=== PATIENT | female | born 1960 | race Caucasian/White ===

== ENCOUNTER 2018-12-03 09:17 | Outpatient (CLI) | payer OTHER, SELFPAY ==
[2018-12-03 09:37] LABS: Abs Immature Grans 0.01 k/cumm (0.0-0.09); Absolute Basophil Count 0.05 k/cumm (0.0-0.2); Absolute Eosinophil Count 0.39 k/cumm (0.0-0.7); Absolute Monocyte Count 0.28 k/cumm (0.11-0.7); Absolute Neutrophil Count 2.25 k/cumm (1.2-6.7); Basophils % 1.4; Eosinophils % 10.6; HCT 40.5 % (36.0-46.0); Immature Grans % 0.3; Mean Corp. HGB Concentration 32.1 g/dL (32.0-36.0); Mean Corpuscular Hemoglobin 29.5 pg (27.0-33.0); Mean Corpuscular Volume 91.8 fL (80-95); Mean Platelet Volume 10.3 fL (8.0-11.0); Monocytes % 7.6; Neutrophils % 61.1; Platelet Count 176 x1000/uL (130-400); RBC 4.41 m/cumm (4.00-5.20); RBC Distribution Width 13.2 % (11.7-14.6); White Blood Cell Count 3.68 k/cumm (4.4-10.8)
[2018-12-03 10:51] LABS: ALT 45 U/L (12-78); AST 32 U/L (15-37); Albumin 3.8 g/dL (3.4-5.0); Alkaline Phosphatase 117 U/L (46-116); Anion Gap 8.6 mmol/L (3-11); BUN 19 mg/dL (7-18); Bilirubin, Total 0.6 mg/dL (0.2-1.0); CO2 27.4 mmol/L (21.0-32.0); Calcium 9.3 mg/dL (8.5-10.1); Chloride 105 mmol/L (98-107); Glucose 96 mg/dL (70-100); Potassium 4.4 mmol/L (3.5-5.1); Sodium 141 mmol/L (136-145); Total Protein 7.3 g/dL (6.4-8.2)
== END 2018-12-03 09:37 ==
PROVIDERS: PCP Family Medicine; Visit Provider Internal Medicine Medical Oncology
DX: C50.411 Malignant neoplasm of upper-outer quadrant of right female breast (principal); Z17.0 Estrogen receptor positive status [ER+]
CPT/HCPCS: 36415; 80053; 85025

== ENCOUNTER 2019-01-24 14:04 | Outpatient (CLI) | payer OTHER, SELFPAY ==
[2019-01-24 15:10] LABS: D-Dimer 318 ng/mlFEU (<500)
== END 2019-01-24 14:24 ==
PROVIDERS: PCP Family Medicine; Visit Provider Family Medicine
DX: R07.89 Other chest pain (principal)
CPT/HCPCS: 36415; 85379

== ENCOUNTER 2019-04-18 00:54 | Outpatient (CLI) | payer OTHER, SELFPAY ==
--- NOTE | 2019-04-18 09:05 | DI.MAMMO_ITS ---
EXAM: MG mammo screening 60 min dur CLINICAL HISTORY: H/O BREAST CA, Z85.3, SCREENING, Z12.31 TECHNIQUE: Mammograms were interpreted according to the usual protocol including computer analysis w [employer] CAD system, tomosynthesis and C-view imaging. COMPARISON: No exams were available for comparison FINDINGS: The breasts are of moderate radiodensity. There is a region of apparent scarring with small lumps in place and calcifications involving the inferomedial portion of the right breast, which would be consi stent with a lumpectomy. There is no evidence of a discrete mass. No suspicious calcifications are se en. IMPRESSION: Postoperative changes involving the right breast as described above. There is no evidence of malignan cy. This is a category 1, BI-RADS category B examination and follow-up surveillance with annual scre ening mammography is recommended. No masses identified. Again noted is the area of scarring and calci fications that appear lie in a region in the inferomedial portion of the right breast consistent with prior surgery.
== END 2019-04-18 01:14 ==
PROVIDERS: PCP Family Medicine; Visit Provider Family Medicine
DX: Z12.31 Encounter for screening mammogram for malignant neoplasm of breast (principal); Z85.3 Personal history of malignant neoplasm of breast; Z98.890 Other specified postprocedural states
CPT/HCPCS: 77063; 77067

== ENCOUNTER 2019-05-30 12:33 | Outpatient (CLI) | payer OTHER, SELFPAY ==
[2019-05-30 13:38] LABS: Abs Immature Grans 0.01 k/cumm (0.0-0.09); Absolute Basophil Count 0.04 k/cumm (0.0-0.2); Absolute Eosinophil Count 0.37 k/cumm (0.0-0.7); Absolute Lymphocyte Count 1.01 k/cumm (1.2-3.4); Absolute Monocyte Count 0.39 k/cumm (0.11-0.7); Absolute Neutrophil Count 3.67 k/cumm (1.2-6.7); Basophils % 0.7; Eosinophils % 6.7; HCT 40.4 % (36.0-46.0); HGB 13.1 g/dL (12.0-15.5); Immature Grans % 0.2; Lymphocytes % 18.4; Mean Corp. HGB Concentration 32.4 g/dL (32.0-36.0); Mean Corpuscular Hemoglobin 29.8 pg (27.0-33.0); Mean Platelet Volume 10.2 fL (8.0-11.0); Monocytes % 7.1; Neutrophils % 66.9; Platelet Count 217 x1000/uL (130-400); RBC 4.39 m/cumm (4.00-5.20); RBC Distribution Width 12.8 % (11.7-14.6); White Blood Cell Count 5.49 k/cumm (4.4-10.8)
[2019-05-30 13:57] LABS: ALT 38 U/L (14-59); AST 26 U/L (15-37); Albumin 3.8 g/dL (3.4-5.0); Alkaline Phosphatase 125 U/L (46-116); Anion Gap 8.7 mmol/L (3-11); BUN 21 mg/dL (7-18); Bilirubin, Total 0.4 mg/dL (0.2-1.0); CO2 29.3 mmol/L (21.0-32.0); CREATININE 1.26 mg/dL (0.55-1.02); Calcium 9.1 mg/dL (8.5-10.1); Chloride 105 mmol/L (98-107); Estimated GFR 43.46 (mL/min/1.73m2); Glucose 91 mg/dL (70-100); Potassium 4.3 mmol/L (3.5-5.1); Sodium 143 mmol/L (136-145); Total Protein 7.5 g/dL (6.4-8.2)
== END 2019-05-30 12:53 ==
PROVIDERS: PCP Family Medicine
DX: C50.411 Malignant neoplasm of upper-outer quadrant of right female breast (principal)
CPT/HCPCS: 36415; 80053; 85025

== ENCOUNTER 2019-07-29 00:51 | Outpatient (CLI) | payer OTHER, SELFPAY ==
--- NOTE | 2019-07-29 16:59 | DI.DEXA_ITS ---
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 COMPARISON: No exams were available for comparison TECHNIQUE: 2D digital imaging was performed. FINDINGS: Evaluation of the lateral spine shows no compression deformities. Evaluation of the left hip shows a total T-score of 0.2 and a Z-score of 1.1. This is within normal limits. There is no evidence of osteoporosis. Evaluation of the lumbar spine shows a total T-score of -0.4 and a Z-score of 1.0. This is within no rmal limits. There is no evidence of osteoporosis. IMPRESSION: No evidence of osteoporosis.
== END 2019-07-29 01:11 ==
PROVIDERS: PCP Family Medicine; Visit Provider Internal Medicine Hematology & Oncology
DX: C50.411 Malignant neoplasm of upper-outer quadrant of right female breast (principal); Z17.0 Estrogen receptor positive status [ER+]; Z13.820 Encounter for screening for osteoporosis
CPT/HCPCS: 77080

== ENCOUNTER 2020-01-31 13:40 | Outpatient (REF) | payer OTHER, SELFPAY ==
[2020-01-31 15:18] LABS: HCT 40.9 % (36.0-46.0); HGB 13.3 g/dL (12.0-15.5); Mean Corp. HGB Concentration 32.5 g/dL (32.0-36.0); Mean Corpuscular Hemoglobin 29.7 pg (27.0-33.0); Mean Corpuscular Volume 91.3 fL (80-95); Mean Platelet Volume 11.7 fL (8.0-11.0); Platelet Count 222 x1000/uL (130-400); RBC 4.48 m/cumm (4.00-5.20); White Blood Cell Count 4.25 k/cumm (4.4-10.8)
[2020-01-31 16:28] LABS: ALT 27 U/L (14-59); AST 24 U/L (15-37); Alkaline Phosphatase 126 U/L (46-116); Anion Gap 6.9 mmol/L (3-11); BUN 19 mg/dL (7-18); Bilirubin, Total 0.6 mg/dL (0.2-1.0); CO2 29.1 mmol/L (21.0-32.0); Calcium 9.6 mg/dL (8.5-10.1); Chloride 104 mmol/L (98-107); Estimated GFR 50.67 (mL/min/1.73m2); Ferritin 79 ng/mL (8-252); Folate 18.1 ng/mL (8.6-20.0); Glucose 90 mg/dL (74-106); Potassium 4.4 mmol/L (3.5-5.1); Sodium 140 mmol/L (136-145); TSH (W/Ref FT4) 2.36 uIU/mL (0.36-3.74); Total Protein 7.2 g/dL (6.4-8.2); Vitamin B12 1328 pg/mL (193-986)
== END 2020-01-31 14:00 ==
LOC: NCHCN 13:40
PROVIDERS: PCP Family Medicine; Visit Provider Family Medicine
DX: R53.83 Other fatigue (principal); E53.8 Deficiency of other specified B group vitamins; R23.8 Other skin changes
CPT/HCPCS: 80053; 85027; 82607; 82728; 82746; 84443

== ENCOUNTER 2020-05-14 00:20 | Outpatient (CLI) | payer OTHER, SELFPAY ==
--- NOTE | 2020-05-14 | DI.MAMMO_ITS ---
EXAM: MG MAMMO SCREENING 60 MIN DUR CLINICAL HISTORY: SCREENING, Z12.31, PERSONAL H/O BREAST CA,Z85.3 TECHNIQUE: Mammograms were interpreted according to the usual protocol including computer analysis w [employer] system, tomosynthesis and C-view imaging. COMPARISON: FINDINGS: Note is made of a prior lumpectomy of the medial aspect of the right breast. No mass or clumped micr ocalcification identified in either breast. The current examination is compared with previous examin ations including April 2019 and there has been no gross interval change in appearance in comparis on with the prior studies. IMPRESSION: No specific evidence of malignancy at this time. Routine screening examinations are suggested at yea rly intervals due to the history of breast carcinoma. BI-RADS Category 1 - Negative Breast Density - Category B - Scattered areas of fibroglandular density
== END 2020-05-14 00:40 ==
PROVIDERS: PCP Family Medicine; Visit Provider Family Medicine
DX: Z12.31 Encounter for screening mammogram for malignant neoplasm of breast (principal); Z85.3 Personal history of malignant neoplasm of breast
CPT/HCPCS: 77063; 77067

== ENCOUNTER 2020-12-04 12:38 | Outpatient (REF) | payer OTHER, SELFPAY ==
[2020-12-04 15:22] LABS: HCT 40.2 % (36.0-46.0); MCHC 32.3 % (32.0-36.0); MCV 92.8 fL (80-95); MPV 11.6 fL (8.0-11.0); Platelet Count 199 10^3/uL (130-400); RBC 4.33 10^6/uL (3.93-5.22); RDW 12.5 % (11.7-14.6); RDW-SD 43.4 fL; WBC 4.16 10^3/uL (4.4-10.8)
[2020-12-04 16:08] LABS: ALT 67 U/L (14-59); AST 63 U/L (15-37); Alkaline Phosphatase 111 U/L (46-116); Anion Gap 5.9 mmol/L (3-11); BUN 20 mg/dL (7-18); Bilirubin, Total 0.5 mg/dL (0.2-1.0); CO2 30.1 mmol/L (21.0-32.0); CREATININE 0.9 mg/dL (0.55-1.02); Calcium 9.2 mg/dL (8.5-10.1); Chloride 106 mmol/L (98-107); Folate 8.6 ng/mL (8.6-20.0); Glucose 80 mg/dL (74-106); Potassium 4.1 mmol/L (3.5-5.1); Sodium 142 mmol/L (136-145); TSH (W/Ref FT4) 1.27 uIU/mL (0.36-3.74)
[2020-12-04 16:31] LABS: Vitamin B12 > 2000 pg/mL (193-986)
[2020-12-07 15:41] LABS: IgA 142 mg/dL (85-499); Interpretation (See Note); Tissue Transglutaminase IgA <1.2 U/mL (<4.0)
== END 2020-12-04 12:39 | disposition home or self-care (01) ==
LOC: NCHCN 12:38
PROVIDERS: PCP Family Medicine; Visit Provider Family Medicine
DX: R63.4 Abnormal weight loss (principal); R53.83 Other fatigue; E53.8 Deficiency of other specified B group vitamins
CPT/HCPCS: 80053; 82784; 83516; 85027; 82607; 82746; 84443

== ENCOUNTER 2021-02-18 09:30 | Outpatient (REF) | payer OTHER, SELFPAY ==
--- NOTE | 2021-02-18 08:45 | PAPFT_PTH ---
PATIENT: Krissy Cantu LOC: [facility]#:[id number] AGE/SX: 60/F ROOM: RE02/18/[address]: Madison Rodrigez : 1960 BED: DIS: 02/18/2021 SPEC #: [id number] RECD: 02/18/21 18:40 STATUS: GAEL REAndreina #: [id number] PRABHJOT: 02/18/21 08:[address]: Madison Rodrigez DEPT: [facility] Cytology RECD BY: Zulay Roman Tissues: 1 - CX/ENDOCX FOR PAP SMEARS Procedures: PAP THIN PREP/[facility] Screening HPV DNA PROBE Comments: [id number]
[2021-02-18 20:27] LABS: ALT 44 U/L (14-59); AST 34 U/L (15-37); Albumin 3.9 g/dL (3.4-5.0); Alkaline Phosphatase 130 U/L (46-116); Bilirubin, Direct 0.1 mg/dL (0.0-0.2); Bilirubin, Total 0.4 mg/dL (0.2-1.0); Ferritin 88 ng/mL (8-252); Total Protein 7.1 g/dL (6.4-8.2)
[2021-02-19 17:56] LABS: Iron 79 ug/dL (50-170); Total Iron Binding Capacity 328 ug/dL (250-450); Transferrin Sat 24 % (15-50)
[2021-02-20 09:36] LABS: HIV-1/2 Ag & Ab Screen Negative (Negative)
[2021-02-22 09:51] LABS: HBs Antibody, Quant 230.9 mIU/mL (See Note); Hepatitis B Surface Ab Positive (See Note)
[2021-02-22 10:20] LABS: Hepatitis C Ab w Rflx HCV PCR Negative (Negative)
[2021-02-22 10:23] LABS: Hepatitis B Surface Ag Negative (Negative)
[2021-02-22 10:38] LABS: Hep B Core Antibody Negative (Negative)
== END 2021-02-18 09:31 | disposition home or self-care (01) ==
LOC: NCHCN 09:30
PROVIDERS: PCP Family Medicine; Visit Provider Family Medicine
DX: Z00.00 Encounter for general adult medical examination without abnormal findings (principal); Z12.4 Encounter for screening for malignant neoplasm of cervix; Z11.51 Encounter for screening for human papillomavirus (HPV); R79.89 Other specified abnormal findings of blood chemistry; R63.4 Abnormal weight loss; Z11.59 Encounter for screening for other viral diseases; Z01.419 Encounter for gynecological examination (general) (routine) without abnormal findings
CPT/HCPCS: 80076; 86704; 86706; 86803; 87340; 87389; 88142; 82728; 83540; 83550; 87624

== ENCOUNTER 2021-03-11 03:51 | Outpatient (CLI) | payer OTHER, SELFPAY ==
[2021-03-11 12:53] LABS: Abs Immature Grans 0.02 10^3/uL (0.0-0.06); Absolute Basophil Count 0.05 10^3/uL (0.0-0.2); Absolute Eosinophil Count 0.22 10^3/uL (0.0-0.7); Absolute Lymphocyte Count 1.07 10^3/uL (1.2-3.4); Absolute Monocyte Count 0.31 10^3/uL (0.1-0.8); Basophils % 1.2; Eosinophils % 5.3; HCT 41.2 % (36.0-46.0); HGB 13.1 g/dL (11.2-15.7); Immature Grans % 0.5; Lymphocytes % 25.7; MCHC 31.8 % (32.0-36.0); MCV 94.3 fL (80-95); MPV 10.6 fL (8.0-11.0); Monocytes % 7.4; Neutrophils % 59.9; Nucleated RBC 0 %; Platelet Count 182 10^3/uL (130-400); RBC 4.37 10^6/uL (3.93-5.22); RDW 12.3 % (11.7-14.6); RDW-SD 43.2 fL; WBC 4.17 10^3/uL (4.4-10.8)
[2021-03-11 13:08] LABS: ALT 37 U/L (14-59); AST 27 U/L (15-37); Albumin 3.6 g/dL (3.4-5.0); Alkaline Phosphatase 111 U/L (46-116); Anion Gap 4.5 mmol/L (3-11); BUN 16 mg/dL (7-18); Bilirubin, Total 0.4 mg/dL (0.2-1.0); CO2 32.5 mmol/L (21.0-32.0); CREATININE 0.9 mg/dL (0.55-1.02); Calcium 9.4 mg/dL (8.5-10.1); Chloride 107 mmol/L (98-107); Glucose 95 mg/dL (74-106); Potassium 3.7 mmol/L (3.5-5.1); Sodium 144 mmol/L (136-145); Total Protein 6.9 g/dL (6.4-8.2)
== END 2021-03-11 03:52 | disposition home or self-care (01) ==
LOC: LBO 03:51
PROVIDERS: PCP Family Medicine; Visit Provider Nurse Practitioner Family
DX: C50.411 Malignant neoplasm of upper-outer quadrant of right female breast (principal); Z79.811 Long term (current) use of aromatase inhibitors
CPT/HCPCS: 36415; 80053; 85025

== ENCOUNTER 2021-12-22 15:24 | Outpatient (REF) | payer OTHER, SELFPAY ==
[2021-12-22 20:04] LABS: HGB 12.9 g/dL (11.2-15.7); MCH 29.6 pg (27.0-33.0); MCHC 32.3 % (32.0-36.0); MCV 92 fL (80-95); MPV 12.2 fL (8.0-11.0); Platelet Count 168 10^3/uL (130-400); RBC 4.36 10^6/uL (3.93-5.22); RDW 12.2 % (11.7-14.6); RDW-SD 41.5 fL; WBC 3.69 10^3/uL (4.4-10.8)
[2021-12-22 20:48] LABS: Anion Gap 7.3 mmol/L (3-11); BUN 21 mg/dL (7-18); CO2 27.7 mmol/L (21.0-32.0); CREATININE 0.8 mg/dL (0.55-1.02); Calcium 9.2 mg/dL (8.5-10.1); Chloride 105 mmol/L (98-107); Glucose 88 mg/dL (74-106); Potassium 4.4 mmol/L (3.5-5.1); Sodium 140 mmol/L (136-145); TSH (W/Ref FT4) 1.29 uIU/mL (0.36-3.74)
[2021-12-22 21:00] LABS: Calculated LDL 79 mg/dL (<100); Cholesterol 161 mg/dL (<200); HDL Cholesterol 73 mg/dL (40-60); Triglyceride 45 mg/dL (<150)
== END 2021-12-22 15:25 | disposition home or self-care (01) ==
LOC: NCHCN 15:24
PROVIDERS: PCP Family Medicine; Visit Provider Family Medicine
DX: R00.2 Palpitations (principal); R53.83 Other fatigue; R78.9 Finding of unspecified substance, not normally found in blood
CPT/HCPCS: 80048; 80061; 85027; 83735; 84443

== ENCOUNTER → 2021-12-28 02:07 | Outpatient (CLI) | payer OTHER, SELFPAY ==
--- NOTE | 2021-12-28 09:00 | DI.MAMMO_ITS ---
Exam(s) MG MAMMO SCREENING 60 MIN DUR EXAM: MG MAMMO SCREENING 60 MIN DUR CLINICAL HISTORY: H/O BREAST CA, INVASIVE DUCTAL ER/VA+, HER2 NEGATIVE 2014, Z85.3; SCREENING TECHNIQUE: Mammograms were interpreted according to the usual protocol including computer analysis w [employer] CAD system, tomosynthesis and C-view imaging. COMPARISON: FINDINGS: The breasts are of moderate density with fairly symmetrical distribution of fibroglandular tissue. N o dominant mass or clumped microcalcification is identified in either breast. There has apparently b een a prior right lumpectomy for breast carcinoma. Examination is compared with previous examinations including May 2020 and there has been no gross interval change in appearance in comparison with the prior studies. IMPRESSION: No specific evidence of malignancy at this time. Routine screening examinations are suggested at yea rly intervals due to the history of breast carcinoma. BI-RADS Category 1 - Negative Breast Density - Category B - Scattered areas of fibroglandular density
== END ==
PROVIDERS: PCP Family Medicine; Visit Provider Family Medicine
DX: Z12.31 Encounter for screening mammogram for malignant neoplasm of breast (principal); Z85.3 Personal history of malignant neoplasm of breast; Z98.890 Other specified postprocedural states; Z17.0 Estrogen receptor positive status [ER+]
CPT/HCPCS: 77063; 77067

== ENCOUNTER 2021-12-28 03:48 | Outpatient (RCR) | payer OTHER, SELFPAY ==
--- NOTE | 2021-12-28 10:45 | HOLTER_ITS ---
APPROVED REPORT Conclusion This is a 48-hour Holter monitor ordered for palpitations Predominant rhythm was sinus. Average heart rate was 61. Minimum was 42, maximum 123 There were very rare isolated premature ventricular contractions There were very rare isolated atrial premature beats. Three self-limited atrial runs occurred. The longest of these was 3 beats in duration There was no atrial fibrillation, no high-grade AV block, no pauses greater than 3 seconds No patient symptoms were reported
== END 2022-01-04 23:59 | disposition home or self-care (01) ==
LOC: RT 03:48
PROVIDERS: PCP Family Medicine; Visit Provider Family Medicine
DX: R07.89 Other chest pain (principal); R00.2 Palpitations; I49.1 Atrial premature depolarization
CPT/HCPCS: 93225; 93226

== ENCOUNTER → 2022-01-20 09:17 | Outpatient (CLI) | payer OTHER, SELFPAY ==
--- NOTE | 2022-01-20 08:00 | ETT_ITS ---
APPROVED REPORT Exam: Exercise Treadmill Patient Location: Out-Patient Room/Bed: Stress Nurse: Elsa Tereas RN Ordering Provider:VONNIE CEBALLOS, Contact Number: BMI: 30.78 Baseline Rhythm: Sinus Rhythm Indications: Chest pressure. Palpitations Medical History Medical History: Palpitations, GERD, Anxiety, Former smoker Cardiac Medications: None Allergies: No known drug allergies Cardiac Risk Factors: Family hx, Former smoker Pretest Chest Pain Characteristics: none Exercise History: Indeterminate Physical Disabilities: none Lung Sounds: diminished throughout Heart Sounds: Regular Stress Test Details Test: Exercise stress testing was performed using a Vladimir protocol. Rest Stress HR Resting HR Supine: 62 bpm Max Heart Rate (APMHR): 158 bpm Resting HR Standin bpm Target HR (85% APMHR): 134 bpm Max HR Achieved: 150 bpm % of APMHR: 94 Recovery HR: 82 bpm HR response to stress: Normal HR response to stress BP Resting BP Supine: 116/74 mmHg Resting BP Standin/76 mmHg Max BP: 152/76 mmHg Recovery BP: 114/78 mmHg BP response to stress: Normal blood pressure response to stress. ECG Resting ECG: Sinus Rhythm Ectopy: none Comment: T-wave inverted in lead III pre-exercise. Stress ECG: Sinus Tachycardia Comment: T-wave returned to baseline once exercise started. Recovery ECG: Sinus Rhythm Recovery Arrhythmia: Asymptomatic, 30 beat run of SVT at immediate recovery Clinical Reason for Termination: Fatigue Stress Symptoms: General Fatigue Exercise duration: 8 min19 sec Highest Stage Reached: Stage 3: 3.4 mph at 14% grade. Exercise capacity: 10.16 METs Angina Score: None Pena Treadmill Score: 7.6 Rate Pressure Product: [id number] Stress ECG Conclusion 1. Resting electrocardiogram was within normal limits 2. Patient exercised on the Vladimir protocol and completed a workload of 10.16 METS, limited by fatigue 3. Normal heart rate and blood pressure response to exercise. Patient achieved 94% of predicted hear t rate for age 4. There was no electrocardiographic evidence of myocardial ischemia 5. A 30 beat run of supraventricular tachycardia was noted in recovery, rate approximately 165 Pena Treadmill Score is 7.6 which is Low risk. Stress Test Summary STAGE Time (mins) Speed (mph) Grade (%) HR BP SYMPTOMS METS Supine 62 116/74 Standing 65 118/76 1 3 1.7 10 121 124/80 4.6 2 6 2.5 12 141 134/80 7 3 9 3.4 14 150 10.2 1 min recovery 138 148/70 3 min recovery 88 152/76 6 min recovery 82 114/78
== END ==
PROVIDERS: PCP Family Medicine; Visit Provider Family Medicine
DX: R07.89 Other chest pain (principal); R00.2 Palpitations
CPT/HCPCS: 93017

== ENCOUNTER 2023-03-10 00:35 | Outpatient (CLI) | payer OTHER, SELFPAY ==
--- NOTE | 2023-03-10 10:45 | DI.MAMMO_ITS ---
Exam(s) MG MAMMO SCREENING 60 MIN DUR EXAM: MG MAMMO SCREENING 60 MIN DUR CLINICAL HISTORY: SCREENING, Z12.31; H/O BREAST CA INVASIVE DUCTAL ER/MI POS, HER2 NEG, Z85.3. TECHNIQUE: Bilateral full field digital CC and MLO mammographic images were obtained with 3D tomosyn thesis and utilizing computer aided detection (CAD). COMPARISON: Prior mammograms were reviewed. Patient underwent right lumpectomy in 2015. FINDINGS: There has been no significant change in the appearance and distribution of the fibroglandular tissue. Multiple benign benign peripherally calcified oil cysts are seen the lumpectomy site in the medial as pect right breast. Small benign nodule more laterally in the right breast is unchanged from 2014 and consistent with benign intramammary lymph node. There are no new spiculated masses nor malignant appearing microcalcification groups in either breast .. There is no new significant architectural distortion nor new skin thickening-retraction. IMPRESSION: No radiographic evidence of malignancy. Stable appearance of the right breast lumpectomy site. BI-RADS Category 2 - Benign Findings Breast Density - Category B - Scattered areas of fibroglandular density Breast density Category C or D implies that the patient has dense breast tissue. Dense breast tissue can make it harder to find cancer on a mammogram. Dense breast tissue is also associated with an incr eased risk of breast cancer. This information about the result of the mammogram report was provided to the patient to raise their awareness. Use this report when you speak with the patient about their risks for breast cancer, which includes their family history. At that time, you may recommend additional screening tests (Ultrasoun d or MRI) as these tests may add significant information. A negative radiographic report should not delay biopsy if a dominant or clinically suspicious mass is present. Up to ten percent of cancers are not identified on mammography. A negative report may reinforce clinical impression. Adenosis and dense breasts may obscure an underlying neoplasm. False positive reports average 6 to 10%. Patient will receive a letter notifying them of these results.
== END 2023-03-10 00:55 ==
LOC: DI 00:36
PROVIDERS: PCP Family Medicine; Visit Provider Family Medicine
DX: Z12.31 Encounter for screening mammogram for malignant neoplasm of breast (principal)
CPT/HCPCS: 77063; 77067

== ENCOUNTER 2024-03-01 15:51 | Outpatient (REF) | payer OTHER, SELFPAY ==
[2024-03-01 18:49] LABS: Abs Immature Grans 0.01 10^3/uL (0.0-0.06); Absolute Basophil Count 0.06 10^3/uL (0.0-0.2); Absolute Lymphocyte Count 1.29 10^3/uL (1.2-3.4); Absolute Neutrophil Count 3.01 10^3/uL (1.2-6.7); Basophils % 1.1 %; Eosinophils % 9.5 %; HCT 38.4 % (36.0-46.0); HGB 12.4 g/dL (11.2-15.7); Immature Grans % 0.2 %; Lymphocytes % 24.5 %; MCHC 32.3 % (32.0-36.0); MCV 93 fL (80-95); MPV 11.8 fL (8.0-11.0); Monocytes % 7.6 %; Neutrophils % 57.1 %; Platelet Count 181 10^3/uL (130-400); RBC 4.14 10^6/uL (3.93-5.22); RDW 12.6 % (11.7-14.6); RDW-SD 43.4 fL; WBC 5.27 10^3/uL (4.4-10.8)
[2024-03-01 19:11] LABS: Uric Acid 5.2 mg/dL (2.6-6.0)
[2024-03-01 19:15] LABS: C-Reactive Protein < 0.50 mg/dL (<or=0.5)
[2024-03-01 19:29] LABS: Hemoglobin A1C 5.5 % (<5.7)
[2024-03-01 19:53] LABS: Calculated LDL 86 mg/dL (<100); Cholesterol 186 mg/dL (<200); HDL Cholesterol 81 mg/dL (40-60); Triglyceride 98 mg/dL (<150); Vitamin B12 391 pg/mL (193-986); Vitamin D 25 Total 21.1 ng/mL (30-100)
== END 2024-03-01 15:52 | disposition home or self-care (01) ==
LOC: NCHCN 15:51
PROVIDERS: PCP Family Medicine; Visit Provider Family Medicine
DX: M25.571 Pain in right ankle and joints of right foot (principal); E55.9 Vitamin D deficiency, unspecified; E53.8 Deficiency of other specified B group vitamins; Z13.220 Encounter for screening for lipoid disorders; Z13.1 Encounter for screening for diabetes mellitus
CPT/HCPCS: 80061; 82306; 82607; 83036; 84550; 85025; 86140

== ENCOUNTER 2024-04-24 02:21 | Outpatient (CLI) | payer OTHER, SELFPAY ==
--- NOTE | 2024-04-24 | DI.MAMMO_ITS ---
Exam(s) US BREAST RT COMPLETE MG MAMMO SCREENING 60 MIN DUR EXAM: MG MAMMO SCREENING 60 MIN DUR +COMPLETE RIGHT BREAST ULTRASOUND CLINICAL HISTORY: Z12.31 Screening. TECHNIQUE: Bilateral full field digital CC and MLO mammographic images were obtained with 3D tomosyn thesis and utilizing computer aided detection (CAD). Also performed additional 3D spot compression vi ew over area of clinical concern in the right breast. Complete right breast ultrasound was performed including all 4 quadrants as well as the right axilla. COMPARISON: Prior mammograms were reviewed. This patient has had prior right breast medial lumpectomy. She feels small pea-sized abnormality at the lumpectomy site. FINDINGS: DIAGNOSTIC BILATERAL MAMMOGRAM: No new left breast findings. In the right breast there again noted multiple clips and benign macrocalcifications at the lumpectomy site related to fat necrosis, with predominately calcified oil cysts again noted at this level. The re are no new malignant-appearing microcalcification groups. Adjacent to these benign calcifications at the lumpectomy site is a small noncalcified density. Spring nadiya 3D imaging through this area as well as additional spot compression 3D imaging render this findin g less concerning. There is no significant new architectural distortion evident. COMPLETE RIGHT BREAST ULTRASOUND: At the 3 o'clock lumpectomy site/area of clinical concern the multiple adjacent benign macro calcific ations noted. Full scanning does not reveal an additional noncalcified nodule all 4 quadrants of the right breast. Of the right axilla is negative for significant adenopathy. IMPRESSION: 1. No mammographic evidence of malignancy in the right breast. 2. No new significant right breast ultrasound findings Appropriate follow-up, as discussed by myself with the patient today, is repeat right breast imaging in 6 months, earlier if clinically indicated. BI-RADS Category 3 - 6 month - Probably Benign Finding: Recommend follow-up mammography in 6 months Breast Density - Category B - Scattered areas of fibroglandular density Breast density Category C or D implies that the patient has dense breast tissue. Dense breast tissue can make it harder to find cancer on a mammogram. Dense breast tissue is also associated with an incr eased risk of breast cancer. This information about the result of the mammogram report was provided to the patient to raise their awareness. Use this report when you speak with the patient about their risks for breast cancer, which includes their family history. At that time, you may recommend additional screening tests (Ultrasoun d or MRI) as these tests may add significant information. A negative radiographic report should not delay biopsy if a dominant or clinically suspicious mass is present. Up to ten percent of cancers are not identified on mammography. A negative report may reinforce clinical impression. Adenosis and dense breasts may obscure an underlying neoplasm. False positive reports average 6 to 10%. Patient will receive a letter notifying them of these results.
== END 2024-04-24 02:41 ==
LOC: DI 02:26
PROVIDERS: PCP Family Medicine; Visit Provider Family Medicine
DX: Z12.31 Encounter for screening mammogram for malignant neoplasm of breast (principal); R92.8 Other abnormal and inconclusive findings on diagnostic imaging of breast
CPT/HCPCS: 76642; 77063; 77067

== ENCOUNTER 2024-12-04 00:49 | Outpatient (CLI) | payer OTHER, SELFPAY ==
--- NOTE | 2024-12-04 13:50 | DI.MAMMO_ITS ---
Exam(s) MAMMO DIAGNOSTIC UNI EXAM: MAMMO DIAGNOSTIC UNI CLINICAL HISTORY: Z85.3 Personal HX of malignant neoplasm of breast, 6 mo FU RT side TECHNIQUE: Right cc and MLO mammogram images were performed according to the usual protocol includ ing computer analysis with CAD system, tomosynthesis and C-view imaging. COMPARISON: 2014 through 2023 FINDINGS: The right breast is composed of scattered fibroglandular densities, Breast Density category B. No suspicious masses or suspicious microcalcifications are seen. Biopsy clips and coarse, benign robert cifications are again noted in the medial portion of the breast. No skin thickening or abnormal axillary lymph nodes are seen. IMPRESSION: BI-RADS Category 2 - Benign Findings Yearly screening mammography is recommended. Breast Density - Category B, scattered fibroglandular densities. A negative radiographic report should not delay biopsy if a dominant or clinically suspicious mass is present. Up to ten percent of cancers are not identified on mammography. A negative report may reinforce clinical impression. Adenosis and dense breasts may obscure an underlying neoplasm. False positive reports average 6 to 10%. Patient will receive a letter notifying them of these results.
== END 2024-12-04 01:09 ==
LOC: DI 00:49
PROVIDERS: PCP Family Medicine; Visit Provider Family Medicine
DX: Z12.31 Encounter for screening mammogram for malignant neoplasm of breast (principal); Z85.3 Personal history of malignant neoplasm of breast; R92.321 Mammographic fibroglandular density, right breast
CPT/HCPCS: 77061; 77065; G0279